=== PATIENT | male | born 1980 | race African-American/Black ===

== ENCOUNTER 2024-10-26 11:02 | Emergency (ER) | payer MEDICAID ==
[~2024-10-26] VITALS: Ht 175.3 cm; Wt 67.7 kg
[2024-10-26] MEDS ORDERED: TOB03OS OP (11:35)
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
[2024-10-26 11:40] VITALS: BP 112/82; PULSE 78; RESP 17; TEMP 98.2; O2SAT 98
== END 2024-10-26 12:23 | disposition home or self-care (01) ==
LOC: ER 11:02
DX: H10.31 Unspecified acute conjunctivitis, right eye (principal); Z88.6 Allergy status to analgesic agent; Z79.1 Long term (current) use of non-steroidal anti-inflammatories (NSAID)

== ENCOUNTER 2025-04-04 08:28 | Inpatient (IN) | payer MEDICAID ==
[~2025-04-04] VITALS: Ht 175.3 cm; Wt 60.2 kg
[~2025-04-04 08:28] MED LIST: TOB03OS OP
[2025-04-04] MEDS: ONDANSETRON HCL 4 MG/2 ML VIAL IV ONE ×2 (08:58→12:34)
[2025-04-04] MEDS: PANTOPRAZOLE 40 MG/10 ML VIAL INJ IV ONE ×2 (08:58→16:24)
[2025-04-04] MEDS: SODIUM CHLORIDE 0.9% 1,000 ML IV ONE ×2 (09:00→15:05)
[2025-04-04] MEDS: MORPHINE SULFATE 4 MG/ML SYR/VIAL IV ONE ×2 (09:00→13:27)
[2025-04-04 09:02] VITALS: PULSE 74; RESP 18; O2SAT 94
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
[2025-04-04 09:22] LABS: Basophils # (auto) 0.1 10 ^3/uL (0-0.2); Basophils % (auto) 0.5 % (0.0-2.0); Eosinophils # (auto) 0.3 10 ^3/uL (0-0.8); Eosinophils % (auto) 2.8 % (0.0-7.0); Hematocrit 50.7 % (41.0-53.0); Hemoglobin 17.5 g/dL (13.5-17.5); Lymphocytes # (auto) 1.5 10 ^3/uL (0.4-5.4); Lymphocytes % (auto) 12.2 % (10.0-50.0); Mean Corpuscular Hgb Conc. 34.6 g/dL (32.0-36.0); Mean Corpuscular Volume 95.6 fL (80.0-100.0); Monocytes # (auto) 0.8 10 ^3/uL (0-1.3); Monocytes % (auto) 6.3 % (0.0-12.0); Neutrophils # (auto) 9.6 10 ^3/uL (1.6-8.6); Neutrophils % (auto) 78.2 % (37.0-80.0); Platelet Count (auto) 195 10^3/uL (140-450); Red Blood Cells 5.31 10^6/uL (4.5-5.90); Red Cell Distribution Width 13.7 % (11.8-14.3); White Blood Cell 12.2 10^3/uL (4.4-10.8)
[2025-04-04 09:45] LABS: Alanine Aminotransferase 23 U/L (7-40); Albumin 4.5 g/dL (3.2-4.8); Alkaline Phosphatase 61 U/L (46-116); Anion Gap 7 (5-15); Aspartate Aminotransferase 29 U/L (<34); BUN/Creatinine Ratio 7.8 (10.0-20.0); Bilirubin, Total 0.9 mg/dL (0.2-1.0); Calcium 9.5 mg/dL (8.7-10.4); Carbon Dioxide 24 mmol/L (20-31); Potassium 3.8 mmol/L (3.5-5.1); Sodium 141 mmol/L (136-145); Total Protein 7.6 g/dL (5.7-8.2)
[2025-04-04 09:47] LABS: Blood Urea Nitrogen 9 mg/dL (9-23); Chloride 110 mmol/L (98-107); Glucose 112 mg/dL (74-106)
--- NOTE | 2025-04-04 09:47 | DVH ---
EXAM: XY CHEST PORTABLE HISTORY: epigastric pain COMPARISON: None TECHNIQUE: Portable AP view of the chest was performed. FINDINGS: No pneumothorax, consolidative infiltrates, or pulmonary edema. There is linear scarring in the left upper and mid lung. There is mild relative elevation of the left hemidiaphragm. The heart is not enla rged. IMPRESSION: No acute intrathoracic process.
[2025-04-04 10:20] LABS: Lipase 34 U/L (12-53)
[2025-04-04] MEDS: IOHEXOL 300 MG/ML 100ML BOTTLE IJ ONE (11:14)
--- NOTE | 2025-04-04 11:29 | DVH ---
Indication: abdominal pain Technique: CT axial images of the abdomen and pelvis are obtained with intravenous contrast. Coronal and sagittal reformats were obtained. Radiation Dose Information: CTDI volume is 5.78 mGy. Dose-length product is 289.45 mGy*cm Comparison: None FINDINGS: The lung bases demonstrate no pleural effusion. Adrenal glands, spleen, pancreas unremarkable. 1 cm left hepatic lobe hypodense lesion. 7 mm right he patic lobe hypodense lesion. There is no CT evidence for cholelithiasis. The kidneys demonstrate no hydronephrosis. Stomach is partially distended. Small bowel loops demonstrates segment of small bowel dilatation with in the lower abdomen / pelvis measuring 2.2 cm. There is adjacent swirling of the mesentery. Remainin g small bowel loops are nondilated. Please refer to axial image 57. Moderate volume stool in the colon. Large bowel mucosal hyperemia. No secondary signs for appendiciti s. The abdominal aorta is normal in caliber. Bladder is partially distended. No inguinal lymphadenopathy . Postsurgical changes of the right iliac bone, posteromedial acetabulum. Moderate degenerate changes bilateral hips. Sclerotic changes of the right femoral head. IMPRESSION: 1. Segment of dilated bowel within the lower abdomen / pelvis as described above with swirling of the adjacent mesentery which could represent a segment of closed loop obstruction. Other considerations include ileus. Recommend surgical consultation for evaluation. 2. Large bowel mucosal hyperemia. Correlate for colitis, inflammatory bowel disease. 3. Sclerotic changes of the right femoral head , which may represent sequela of avascular necrosis. 4. Hepatic hypodense lesions up to 1 cm. Recommend multiphasic MRI abdomen to characterize which can be done in the nonemergent setting.
[2025-04-04 11:59] LABS: Urine Bacteria FEW /hpf (None Seen); Urine Blood TRACE /uL (Negative); Urine Clarity Clear (Clear); Urine Color Light-Yellow (Yellow); Urine Protein, UAD 1+ (Negative); Urine Squamous Epithelial Cell FEW /hpf (<5); Urine Urobilinogen Normal (Negative); Urine WBC 1 /HPF (0-3)
[2025-04-04 12:15] VITALS: TEMP 98.2; O2SAT 98
[2025-04-04 12:21] LABS: Urine Specific Gravity > 1.050 (1.001-1.035)
[2025-04-04] MEDS: ATROPINE SULF 1 MG/10ml SYR IV ONE (12:53)
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
[2025-04-04] MEDS: GASTROGRAFIN 120 ML SOL ONE (15:05)
[2025-04-04 15:06] VITALS: BP 140/86; PULSE 60; RESP 12
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
[2025-04-04] MEDS ORDERED: ONDANSETRON HCL 4 MG/2 ML VIAL IV PRN (16:15)
[2025-04-04] MEDS: SODIUM CHLORIDE 0.9% 1,000 ML IV SCH (16:15)
[2025-04-04] MEDS: cefTRIAXone 1GM/50ML D5W 50 ML IV ONE (16:24)
[2025-04-04] MEDS: metroNIDAZOLE 500MG/100ML 100 ML IV ONE (17:28)
[2025-04-04] MEDS ORDERED: metroNIDAZOLE 500MG/100ML 100 ML IV SCH (22:00)
[2025-04-05] MEDS ORDERED: cefTRIAXone 1GM/50ML D5W 50 ML IV SCH (09:00)
[2025-04-05] MEDS ORDERED: PANTOPRAZOLE 40 MG/10 ML VIAL INJ IV SCH (10:00)
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
--- NOTE | 2025-04-07 12:45 | ECG ---
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
== END 2025-04-04 19:45 | disposition left against medical advice (07) | DRG 247 ==
LOC: ER 08:28 → OVERFLOW 16:01
PROVIDERS: ADMIT Student in an Organized Health Care Education/Training Program; ATTEND Emergency Medicine
DX: K56.50 Intestinal adhesions [bands], unspecified as to partial versus complete obstruction (principal); A04.9 Bacterial intestinal infection, unspecified; E86.0 Dehydration; Z53.29 Procedure and treatment not carried out because of patient's decision for other reasons; K76.9 Liver disease, unspecified; F12.90 Cannabis use, unspecified, uncomplicated; Z88.6 Allergy status to analgesic agent; Z79.899 Other long term (current) drug therapy; Z87.891 Personal history of nicotine dependence
CPT/HCPCS: 36415; 71045; 74177; 80053; 81001; 83036; 83690; 84443; 85025; 93005; 96365; 96375; 99291; G0378; J2405; J2470; J3490

== ENCOUNTER 2025-07-05 13:11 | Emergency (ER) | payer MEDICAID ==
[~2025-07-05] VITALS: Ht 177.8 cm; Wt 60.0 kg
[2025-07-05 13:18] VITALS: BP 126/87; PULSE 69; RESP 16; TEMP 97.9; O2SAT 95
[2025-07-05 13:56] LABS: Hematocrit 51.2 % (41.0-53.0); Hemoglobin 17.5 g/dL (13.5-17.5); Mean Corpuscular Hemoglobin 33.1 pg (28.0-32.0); Mean Corpuscular Volume 97.0 fL (80.0-100.0); Nucleated Red Blood Cells % 0.0 %
[2025-07-05 14:05] LABS: Potassium 4.2 mmol/L (3.5-5.1); Sodium 141 mmol/L (136-145)
[2025-07-05 14:06] LABS: Anion Gap 8 (5-15); Calcium 9.2 mg/dL (8.7-10.4); Carbon Dioxide 25 mmol/L (20-31)
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
[2025-07-05 14:10] LABS: Chloride 108 mmol/L (98-107)
[2025-07-05 14:11] LABS: BUN/Creatinine Ratio 4.4 (10.0-20.0); Glucose 103 mg/dL (74-106)
[2025-07-05 14:13] LABS: Blood Urea Nitrogen 5 mg/dL (9-23)
[2025-07-05] MEDS ORDERED: SODIUM CHLORIDE 0.9% 1,000 ML IV ONE ×2 (14:45)
[2025-07-05] MEDS ORDERED: ONDANSETRON HCL 4 MG/2 ML VIAL IV ONE (14:45)
[2025-07-06] MEDS ORDERED: MORPHINE SULFATE INJ 2 MG/ml SYRG ONE (13:55)
[2025-07-06] MEDS ORDERED: ACETAMINOPHEN 325 MG TAB PO ONE (22:56)
== END 2025-07-05 23:02 | disposition left against medical advice (07) ==
LOC: ER 13:11
DX: K52.9 Noninfective gastroenteritis and colitis, unspecified (principal); Z88.6 Allergy status to analgesic agent
CPT/HCPCS: 36415; 80048; 85025

== ENCOUNTER 2025-07-06 07:09 | Inpatient (IN) | payer MEDICAID ==
[~2025-07-06] VITALS: Ht 175.3 cm; Wt 57.6 kg
--- NOTE | 2025-07-06 08:14 | ED.PDOC ---
GI ASSESSMENT HPI Comments 44 y/o M, presents to the ED for CC of abdominal pain. Patient states, that he has been experiencing symptoms of diffuse abdominal pain with associated abdominal cramping, nausea, vomiting, and diarrhea sudden onset, yesterday (07/05/25). Patient reports, that he was seen at [facility] yesterday (07/05/25) for SS and had to leave d/t a family emergency. Patient endorses smoking marijuana, denies tobacco or illicit drug usage. No other symptoms or modifying factors are present at this time. Chief Complaint: Abdominal Pain Time Seen by MD: 08:00 Primary Care Provider: MARLIN Reviewed Notes: Nurses Notes, Medications, Allergies Allergies: Coded Allergies: Ibuprofen (Verified Allergy, Unknown, 10/26/24) Home Meds Active Scripts Tobramycin Sulfate (Tobrex) [address], 2 DROP OP QID, #5 ML Prov:LENA LANCASTRE 10/26/24 Information Source: Patient Mode of Arrival: Ambulatory Timing: Days Duration: Since onset Prehospital treatment: None Quality: Cramping Vomitus: Watery Stool: Watery Severity: Moderate Recent: None Recent Hx of: None Pain Location: Diffuse Modifying Factors: Nothing Associated sign and symptoms: Nausea, Vomiting, Diarrhea, Abdominal Pain Past Medical History PAST MEDICAL HISTORY: Denies Family History Family History: Reviewed,noncontributory to illness Social History Smoker: Non-Smoker Alcohol: Denies ETOH Use Drugs: Marijuana Lives In: Home Constitutional: denies: chills, diaphoresis, fatigue, fever, malaise, sweats, weakness, others EENTM: denies: blurred vision, double vision, ear bleeding, ear discharge, ear drainage, ear pain, ear ringing, eye pain, eye redness, hearing loss, mouth pain, mouth swelling, nasal discharge, nose bleeding, nose congestion, nose pain, photophobia, tearing, throat pain, throat swelling, voice changes, others Respiratory: denies: cough, hemoptysis, orthopnea, SOB at rest, shortness of breath, SOB with excertion, stridor, wheezing, others Cardiovascular: denies: chest pain, dizzy spells, diaphoresis, Dyspnea on exertion, edema, irregular heart beat, left arm pain, lightheadedness, palpitations, PND, syncope, others Gastrointestinal: reports: abdominal pain, diarrhea, nausea, vomiting; denies: abdomen distended, blood streaked bowels, constipated, dysphagia, difficulty swallowing, hematemesis, melena, poor appetite, poor fluid intake, rectal bleeding, rectal pain, others Genitourinary: denies: burning, dysuria, flank pain, frequency, hematuria, incontinence, penile discharge, penile sore, pain, testicle pain, testicle swelling, urgency, others Neurological: denies: dizziness, fainting, headache, left sided numbness, left sided weakness, numbness, paresthesia, pre-existing deficit, right sided numbness, right sided weakness, seizure, speech problems, tingling, tremors, weakness, others Musculoskeletal: denies: back pain, gout, joint pain, joint swelling, muscle pain, muscle stiffness, neck pain, others Integumetry: denies: bruises, change in color, change in hair/nails, dryness, laceration, lesions, lumps, rash, wounds, others Allergic/Immunocompromised: denies: Difficulty Healing, Frequent Infections, Hives, Itching, others Hematologic/Lymphatic: denies: anemia, blood clots, easy bleeding, easy bruising, swollen glands, others Endocrine: denies: excessive hunger, excessive sweating, excessive thirst, excessive urination, flushing, intolerance to cold, intolerance to heat, unexplained weight gain, unexplained weight loss, others Psychiatric: denies: anxiety, bipolar disorder, depression, hopeless, panic disorder, schizophrenia, sleepless, suicidal, others All Other Systems: Reviewed and Negative Physical Exam General Appearance: Moderate Distress, Thin HEENT: Normal ENT Inspection, Pharynx Normal, TMs Normal Neck: Full Range of Motion, Non-Tender, Normal, Normal Inspection Respiratory: Chest Non-Tender, Lungs Clear, No Accessory Muscle Use, No Respir atory Distress, Normal Breath Sounds Cardiovascular: No Edema, No JVD, No Murmur, No Gallop, Normal Peripheral Pulses, Regular Rate/Rhythm Breast Exam: Deferred Gastrointestinal: Diffuse Genitalia: Deferred Pelvic: Deferred Rectal: Deferred Extremities: No calf tenderness, Normal capillary refill, Normal inspection, Normal range of motion, Non-tender, No pedal edema Musculoskeletal : Apperance: Normal Neurologic: Alert, 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 Was a procedure done?: No GI differential Dx Differential Diagnosis: Constipation, Diverticular disease, Esophagitis, Gastritis/PUD, Gastroenteritis, Drug toxicity, Electrolyte Imbalance, Food Poisoning, Bacterial, Viral X-Ray, Labs, Meds, VS Vital Signs Date Time Temp Pulse Resp B/P (MAP) Pulse Ox O2 Delivery O2 Flow Rate FiO2 07/06/25 13:30 98.1 50 18 110/67 (81) 96 98.1 07/06/25 11:30 48 19 110/69 07/06/25 11:30 98.1 48 19 110/69 (83) 96 98.1 07/06/25 09:35 56 19 98 Room Air* 0 21 07/06/25 09:35 97.9 56 19 145/65 (91) 98 97.9 07/06/25 09:30 56 19 149/65 07/06/25 07:20 46 07/06/25 07:10 97.9 52 18 143/90 97 97.9 Lab Test 07/06/25 10:06 07/06/25 08:11 Range/Units Lactic Acid Level 1.7 0.4-2.0 mmol/L White Blood Count 17.1 #H 4.4-10.8 10^3/uL Red Blood Count 5.88 4.5-5.90 10^6/uL Hemoglobin 19.3 H 13.5-17.5 g/dL Hematocrit 56.0 H 41.0-53.0 % Mean Corpuscular Volume 95.2 80.0-100.0 fL Mean Corpuscular Hemoglobin 32.8 H 28.0-32.0 pg Mean Corpuscular Hemoglobin Concent 34.4 32.0-36.0 g/dL Red Cell Distribution Width 13.7 11.8-14.3 % Platelet Count 244 140-450 10^3/uL Mean Platelet Volume 8.3 6.9-10.8 fL Neutrophils (%) (Auto) 86.4 H 37.0-80.0 % Lymphocytes (%) (Auto) 6.8 L 10.0-50.0 % Monocytes (%) (Auto) 6.3 0.0-12.0 % Eosinophils (%) (Auto) 0.0 0.0-7.0 % Basophils (%) (Auto) 0.5 0.0-2.0 % Neutrophils # (Auto) 14.8 H 1.6-8.6 10 ^3/uL Lymphocytes # (Auto) 1.2 0.4-5.4 10 ^3/uL Monocytes # (Auto) 1.1 0-1.3 10 ^3/uL Eosinophils # (Auto) 0 0-0.8 10 ^3/uL Basophils # (Auto) 0.1 0-0.2 10 ^3/uL Nucleated Red Blood Cells 0.1 % Sodium Level 137 136-145 mmol/L Potassium Level 3.7 3.5-5.1 mmol/L Chloride Level 101 98-107 mmol/L Carbon Dioxide Level 23 20-31 mmol/L Anion Gap 13 5-15 Blood Urea Nitrogen 11 9-23 mg/dL Creatinine 1.32 H 0.700-1.30 mg/dL Glomerular Filtration Rate Calc 69 >90 mL/min BUN/Creatinine Ratio 8.3 L 10.0-20.0 Serum Glucose 130 H 74-106 mg/dL Hemoglobin A1c 5.4 <5.7 % A1C Calcium Level 10.0 8.7-10.4 mg/dL Total Bilirubin 0.9 0.2-1.0 mg/dL Direct Bilirubin 0.2 <0.3 mg/dL Aspartate Amino Transferase (AST) 73 H 13-40 U/L Alanine Aminotransferase (ALT) 43 H 7-40 U/L Alkaline Phosphatase 76 46-116 U/L Total Protein 9.5 H 5.7-8.2 g/dL Albumin 5.4 H 3.2-4.8 g/dL Current Medications Medications (Trade) Dose Ordered Sig/Gay Route Start Time Stop Time Status Last Admin Sodium Chloride 1,000 ml @ 1,000 mls/hr Q1H ONCE IV 07/06/25 08:00 07/06/25 08:59 DC 07/06/25 09:29 Ondansetron HCl (Zofran) 4 mg ONCE ONCE IV 07/06/25 08:00 07/06/25 08:01 DC 07/06/25 09:29 Morphine Sulfate 4 mg ONCE ONCE IV 07/06/25 09:30 07/06/25 09:31 DC 07/06/25 09:30 Ceftriaxone Sodium 50 ml @ 100 mls/hr ONCE ONCE IV 07/06/25 09:30 07/06/25 09:59 DC 07/06/25 09:45 Metronidazole 100 ml @ 100 mls/hr ONCE ONCE IV 07/06/25 09:45 07/06/25 10:44 DC 07/06/25 12:11 Morphine Sulfate 2 mg ONCE ONCE IV 07/06/25 13:30 07/06/25 13:31 DC 07/06/25 14:07 Patient alert. Came in because abdominal pain. Was seen yesterday but left without being admitted. Vitals stable. Establish intravenous access. Was given fluids. WBC elevated. Was given Rocephin. Was given morphine. Was given Zofran. Continues to have abdominal pain. Possible colitis. Uses marijuana. Explained to the patient. [place] [id number] Ph: [phone] DIAGNOSTIC IMAGING Diagnostic Imaging Report : [id number] Signed PATIENT: HONEY LOPEZ ACCT: [id number] UNIT: [id number] : 1980 LOC: ER ROOM / BED: / AGE / SEX: 44 / M ADM STATUS: REG ER SERVICE 0 ORDERING PHYSICIAN: JIMMY ZAPATA MD PROCEDURE(s): ABPL - CT AB PEL WO CON-NO ORAL OR IV REASON: colitis ORDER NUMBER(s): [id number], ACCESSION NUMBER(s): [id number] COMPUTERIZED TOMOGRAPHY ABDOMEN AND PELVIS WITHOUT CONTRAST REASON FOR EXAM: colitis COMPARISON: CT CT AB PEL WITH IV CON ONLY on DOS: 04/04/25, CT ABD/PEL W - IV on DOS: 11/29/23, CT ABD/PEL on DOS: 11/29/23 TECHNIQUE: Spiral scans were acquired from the diaphragm to the symphysis pubis without intravenous contrast administration. 2-D coronal and sagittal reformatted images were provided. Radiation optimization: All CT scans at this facility use at least one of these dose optimization techniques: Automated exposure control mA and/or kV adjustment per patient size (includes targeted exams where dose is matched to clinical indication) or iterative reconstruction. RADIATION DOSE: CTDI: 5 mGy DLP: 297 mGy-cm FINDINGS: The visualized lung bases are grossly clear. There is no pleural effusion. There is no pericardial effusion. The spleen is not enlarged. The liver is normal in size and contour. There are a few scattered small hepatic hypodensities that are too small to characterize and likely represent cysts. Evaluation of the abdominal organs is suboptimal in the absence of intravenous contrast. No calcified gallstone is identified. Unenhanced appearance of the pancreas is grossly unremarkable. The adrenal glands are normal. The kidneys are similar in size. There are 2 nonobstructive calculi at the superior pole of the left kidney measuring 2 mm each. There is no hydronephrosis of either kidney. Severe streak artifact from right iliac bone fixation hardware degrades evaluation of the pelvic organs. The urinary bladder is not seen. The prostate and seminal vesicles are not well seen. The colonic stool burden is small. The colonic stool burden is small. There is no pathologic distention of the small bowel to suggest obstruction. The appendix is grossly normal. No free fluid is identified within the limitations of this study. There is no abdominal aortic aneurysm. No acute osseous abnormality is identified. IMPRESSION: No acute abnormality identified within the limitations of this noncontrast study. Nonobstructive left nephrolithiasis. ATED BY: DAWOOD EUCEDA MD DICTATED DATE/TIME: 07/06/25 102 SIGNED BY: DAWOOD EUCEDA MD SIGNED DATE/TIME: 07/06/25 1027 CC: Time of 1ST Reevaluation: 08:30 Reevaluation 1ST: Unchanged Patient Education/Counseling: Diagnosis, Treatment Family Education/Counseling: No Family Present SEPSIS Sepsis Screen Date sepsis recognized/suspect: Jul 06, 2025 Time Sepsis recognized/suspect: 07 Recent Procedure: No On Antibiotic Therapy: No Respiratory Rate >20: No Heart Rate >90: No Temp<36 C (96.8 F) or >38.3 C: No SBP <90 or MAP <65 mmHG: No New Acute Mental Status Change: No Is the patient on CPAP, BIPAP,: No Physician Orders Electrocardigram (07/06/25 07:39) Ct Ab Pel Wo Con-No Oral Or Iv (07/06/25 09:21) Blood Culture (07/06/25 09:42) Vital Signs Date Time Temp Pulse Resp B/P (MAP) Pulse Ox O2 Delivery O2 Flow Rate FiO2 07/06/25 13:30 98.1 50 18 110/67 (81) 96 98.1 07/06/25 11:30 48 19 110/69 07/06/25 11:30 98.1 48 19 110/69 (83) 96 98.1 07/06/25 09:35 56 19 98 Room Air* 0 21 07/06/25 09:35 97.9 56 19 145/65 (91) 98 97.9 07/06/25 09:30 56 19 149/65 07/06/25 07:20 46 07/06/25 07:10 97.9 52 18 143/90 97 97.9 Laboratory Tests Test 07/06/25 08:11 07/06/25 10:06 White Blood Count 17.1 10^3/uL (4.4-10.8) #H Lactic Acid Level 1.7 mmol/L (0.4-2.0) Medications Medications Dose Ordered Sig/Gay Route Start Time Stop Time Status Last Admin Dose Admin Ceftriaxone Sodium 50 ml @ 100 mls/hr ONCE ONCE IV 07/06/25 09:30 07/06/25 09:59 DC 07/06/25 09:45 Metronidazole 100 ml @ 100 mls/hr ONCE ONCE IV 07/06/25 09:45 07/06/25 10:44 DC 07/06/25 12:11 Morphine Sulfate 2 mg ONCE ONCE IV 07/06/25 13:30 07/06/25 13:31 DC 07/06/25 14:07 Morphine Sulfate 4 mg ONCE ONCE IV 07/06/25 09:30 07/06/25 09:31 DC 07/06/25 09:30 Ondansetron HCl 4 mg ONCE ONCE IV 07/06/25 08:00 07/06/25 08:01 DC 07/06/25 09:29 Sodium Chloride 1,000 ml @ 1,000 mls/hr Q1H ONCE IV 07/06/25 08:00 07/06/25 08:59 DC 07/06/25 09:29 Departure 1 Departure Time of Disposition: 09:41 Impression: Primary Impression: Sepsis, unspecified organism Qualified Codes: A41.9 - Sepsis, unspecified organism Additional Impression: Acute abdominal pain Disposition: 09 ADMITTED INPATIENT Admit to: Med Surg Condition: Guarded Critical Care Note Critical Care Time?: No Stability Stability form required: No Heart Score Heart Score: Heart Score Response (Comments) Value History N/A 0 EKG N/A 0 Age N/A 0 Risk Factors N/A 0 Troponin N/A 0 Total 0 I personally scribed for JIMMY ZAPATA MD ([email or web address]) on 07/06/25 at 08:14. Electronically submitted by Avelina Villalpando ([employer]). I personally scribed for JIMMY ZAPATA MD ([email or web address]) on 07/06/25 at 10:47. Electronically submitted by Avelina Villalpando ([employer]). JIMMY ZAPATA MD Jul 06, 2025 08:14
[2025-07-06 08:24] LABS: Hemoglobin 19.3 g/dL (13.5-17.5); Mean Corpuscular Hemoglobin 32.8 pg (28.0-32.0); Mean Corpuscular Volume 95.2 fL (80.0-100.0); Nucleated Red Blood Cells % 0.1 %
[2025-07-06 08:25] LABS: Hematocrit 56.0 % (41.0-53.0)
[2025-07-06 08:28] LABS: Chloride 101 mmol/L (98-107); Potassium 3.7 mmol/L (3.5-5.1); Sodium 137 mmol/L (136-145)
[2025-07-06 08:29] LABS: Anion Gap 13 (5-15); Carbon Dioxide 23 mmol/L (20-31)
[2025-07-06 08:30] LABS: Calcium 10.0 mg/dL (8.7-10.4)
[2025-07-06 08:35] LABS: BUN/Creatinine Ratio 8.3 (10.0-20.0); Blood Urea Nitrogen 11 mg/dL (9-23)
[2025-07-06 08:39] LABS: Glucose 130 mg/dL (74-106)
[2025-07-06] MEDS: ONDANSETRON HCL 4 MG/2 ML VIAL IV ONE (09:29)
[2025-07-06] MEDS: SODIUM CHLORIDE 0.9% 1,000 ML IV ONE (09:29)
[2025-07-06] MEDS: MORPHINE SULFATE 4 MG/ML SYR/VIAL IV ONE (09:30)
[2025-07-06 09:35] VITALS: PULSE 56; RESP 19; O2SAT 98
--- NOTE | 2025-07-06 10:30 | DVH ---
COMPUTERIZED TOMOGRAPHY ABDOMEN AND PELVIS WITHOUT CONTRAST REASON FOR EXAM: colitis COMPARISON: CT CT AB PEL WITH IV CON ONLY on DOS: 04/04/25, CT ABD/PEL W - IV on DOS: 11/29/23, CT ABD/P EL on DOS: 11/29/23 TECHNIQUE: Spiral scans were acquired from the diaphragm to the symphysis pubis without intravenous c ontrast administration. 2-D coronal and sagittal reformatted images were provided. Radiation optimiza tion: All CT scans at this facility use at least one of these dose optimization techniques: Automated exposure control mA and/or kV adjustment per patient size (includes targeted exams where dose is mat ched to clinical indication) or iterative reconstruction. RADIATION DOSE: CTDI: 5 mGy DLP: 297 mGy-cm FINDINGS: The visualized lung bases are grossly clear. There is no pleural effusion. There is no pericardial effusion. The spleen is not enlarged. The liver is normal in size and contour. There are a few scattered small hepatic hypodensities that are too small to characterize and likely represent cysts. Evaluation of th e abdominal organs is suboptimal in the absence of intravenous contrast. No calcified gallstone is id entified. Unenhanced appearance of the pancreas is grossly unremarkable. The adrenal glands are bob l. The kidneys are similar in size. There are 2 nonobstructive calculi at the superior pole of the le ft kidney measuring 2 mm each. There is no hydronephrosis of either kidney. Severe streak artifact f rom right iliac bone fixation hardware degrades evaluation of the pelvic organs. The urinary bladder is not seen. The prostate and seminal vesicles are not well seen. The colonic stool burden is small. The colonic stool burden is small. There is no pathologic distention of the small bowel to suggest ob struction. The appendix is grossly normal. No free fluid is identified within the limitations of this study. There is no abdominal aortic aneurysm. No acute osseous abnormality is identified. IMPRESSION: No acute abnormality identified within the limitations of this noncontrast study. Nonobstructive left nephrolithiasis.
[2025-07-06 13:00] VITALS: BP 124/84; PULSE 53; RESP 18; TEMP 97.6; O2SAT 94
[2025-07-06] MEDS ORDERED: ONDANSETRON HCL 4 MG/2 ML VIAL IV PRN (13:45)
[2025-07-06] MEDS ORDERED: NITROGLYCERIN 0.4 MG SL TAB SL PRN (13:45)
[2025-07-06] MEDS ORDERED: MORPHINE SULFATE INJ 2 MG/ml SYRG IV PRN (13:45)
[2025-07-06] MEDS: SODIUM CHLOR 0.9% PF (SALINE LOCK) 10ML VIAL/SYR IV SCH (14:06)
[2025-07-06] MEDS: MORPHINE SULFATE INJ 2 MG/ml SYRG IV ONE (14:07)
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
[2025-07-06 14:30] LABS: Alkaline Phosphatase 76.0 U/L (46-116); Bilirubin, Direct 0.2 mg/dL (<0.3); Bilirubin, Total 0.9 mg/dL (0.2-1.0)
[2025-07-06 14:32] LABS: Alanine Aminotransferase 43.0 U/L (7-40); Albumin 5.4 g/dL (3.2-4.8); Total Protein 9.5 g/dL (5.7-8.2)
[2025-07-06 14:45] LABS: Lipase 41 U/L (12-53)
[2025-07-06 14:46] LABS: Magnesium 2.1 mg/dL (1.6-2.6)
[2025-07-06 14:47] LABS: INR 1.06 (0.9-1.15); Partial Thromboplastin Time 28.5 SEC (24.5-34.5); Prothrombin Time 11.2 sec (9.3-11.8)
[2025-07-06 15:14] VITALS: BP 124/84; PULSE 53; RESP 18; TEMP 97.6; O2SAT 18; O2SAT 94
[2025-07-06 15:31] LABS: Urine Protein, UAD 2+ (Negative)
[2025-07-06 15:41] LABS: Cannabinoid Screen, Urine Pos (NEGATIVE); Opiate Scree,Urine Pos (NEGATIVE)
[2025-07-06 15:47] LABS: Amphetamine Screen, Urine Neg (NEGATIVE); Barbiturate Scree,Urine Neg (NEGATIVE); Benzodiazephine Screen, Urine Neg (NEGATIVE); Cocaine Screen, Urine Neg (NEGATIVE); Phencyclidine Screen, Urine Neg (NEGATIVE)
[2025-07-06] MEDS: PANTOPRAZOLE 40 MG/10 ML VIAL INJ IV SCH (15:52)
[2025-07-06] MEDS: SODIUM CHLORIDE 0.9% 1,000 ML IV SCH (16:00)
[2025-07-06 17:00] VITALS: BP 143/89; PULSE 44; RESP 18; TEMP 98; O2SAT 95
[2025-07-06 22:28] VITALS: PULSE 44; RESP 18; O2SAT 98
[2025-07-06 22:40] VITALS: BP 118/72; PULSE 44; RESP 18; TEMP 98; O2SAT 98
[2025-07-06] MEDS: ACETAMINOPHEN 325 MG TAB PO PRN (22:55)
[2025-07-07 05:00] VITALS: BP 92/47; PULSE 93; RESP 17; TEMP 98.1; O2SAT 99
[2025-07-07] MEDS ORDERED: SODIUM CHLORIDE 0.9% 1,000 ML IV ONE (07:30)
[2025-07-07 08:00] VITALS: PULSE 47; RESP 16; O2SAT 95
[2025-07-07 08:14] LABS: Hematocrit 45.3 % (41.0-53.0); Hemoglobin 15.9 g/dL (13.5-17.5); Mean Corpuscular Hemoglobin 33.0 pg (28.0-32.0); Mean Corpuscular Volume 94.2 fL (80.0-100.0); Nucleated Red Blood Cells % 0.0 %
[2025-07-07 08:22] LABS: Alanine Aminotransferase 34 U/L (7-40); Albumin 3.7 g/dL (3.2-4.8); Alkaline Phosphatase 55 U/L (46-116); Anion Gap 11 (5-15); BUN/Creatinine Ratio 10.1 (10.0-20.0); Bilirubin, Total 1.1 mg/dL (0.2-1.0); Blood Urea Nitrogen 11 mg/dL (9-23); Carbon Dioxide 25 mmol/L (20-31); Chloride 102 mmol/L (98-107); Glucose 88 mg/dL (74-106); Potassium 4.0 mmol/L (3.5-5.1); Sodium 138 mmol/L (136-145); Total Protein 6.6 g/dL (5.7-8.2)
[2025-07-07 08:28] LABS: Calcium 8.2 mg/dL (8.7-10.4)
[2025-07-07 09:00] VITALS: BP 93/50; PULSE 79; RESP 18; TEMP 97.8; O2SAT 95
[2025-07-07] MEDS ORDERED: PANTOPRAZOLE 40 MG/10 ML VIAL INJ IV ONE (09:41)
[2025-07-07] MEDS ORDERED: ENOXAPARIN SOD 40 MG/0.4 ML SYRINGE SC ONE (09:41)
[2025-07-07] MEDS: ENOXAPARIN SOD 40 MG/0.4 ML SYRINGE SC SCH (09:49)
[2025-07-07] MEDS ORDERED: AMOX500T86 PO (12:00)
[2025-07-07] MEDS ORDERED: ZOFR4T PO (12:00)
[2025-07-07] MEDS ORDERED: PANT40T PO (12:01)
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
--- NOTE | 2025-07-07 12:58 | ECG ---
[facility] Test Date: 2025-07-06 Test Time: 07:20:41 Pat Name: HONEY LOPEZ Department: [facility] ED Patient ID: [facility]-[id number] Room: 0296T A Gender: M Technology Lead: rocio : 1980 Requested By: JIMMY ZAPATA Order Number: [id number] Reading MD: Jordan Jay Measurements Intervals [place] Rate: 46 P: 0 VA: 0 QRS: 85 QRSD: 96 T: 80 QT: 436 QTc: 382 Interpretive Statements Junctional rhythm Probable left ventricular hypertrophy Abnrm T, consider ischemia, anterolateral lds Electronically Signed On 07-09-2025 9:36:41 PDT by Jordan Jay Please click the below link to view image of tracing.
== END 2025-07-07 13:20 | disposition home or self-care (01) | DRG 249 ==
LOC: ER 07:09 → OVERFLOW 13:42 → WEST WING 22:28 → TELE-WESTW 07-07 02:39
PROVIDERS: ADMIT Internal Medicine Geriatric Medicine; ATTEND Internal Medicine Geriatric Medicine
DX: A09 Infectious gastroenteritis and colitis, unspecified (principal); N17.0 Acute kidney failure with tubular necrosis; F12.90 Cannabis use, unspecified, uncomplicated; N20.0 Calculus of kidney; Z88.6 Allergy status to analgesic agent; N18.9 Chronic kidney disease, unspecified
CPT/HCPCS: 36415; 74176; 80048; 80053; 80076; 80307; 80320; 81001; 83036; 83605; 83690; 83735; 84443; 85025; 85610; 85730; 87040; 87086; 93005; 96365; 96375; G0378; J2470; J3490